=== PATIENT | male | born 1940 | race Caucasian/White ===

== ENCOUNTER → 2018-02-09 | Outpatient (CLI) | payer OTHER, MEDICARE | LOC: BHLMT 14:00 | PROVIDERS: ATTEND Internal Medicine Interventional Cardiology | DX: I48.91 Unspecified atrial fibrillation (principal); R06.02 Shortness of breath | CPT/HCPCS: 93306-PO ==

== ENCOUNTER → 2018-02-17 | Outpatient (CLI) | payer OTHER, MEDICARE | LOC: BHFA 13:00 | PROVIDERS: ATTEND Internal Medicine Cardiovascular Disease | DX: I48.91 Unspecified atrial fibrillation (principal); R06.02 Shortness of breath | CPT/HCPCS: 78452; 93017; A9500; J2785 ==

== ENCOUNTER → 2018-05-04 | Outpatient (CLI) | payer OTHER, MEDICARE | LOC: BHFA 15:00 | PROVIDERS: ATTEND Internal Medicine Cardiovascular Disease | DX: I48.1 Persistent atrial fibrillation (principal); I48.92 Unspecified atrial flutter; I10 Essential (primary) hypertension ==

== ENCOUNTER 2018-05-16 07:30 | Day surgery (SDC) | payer OTHER, MEDICARE ==
[2018-05-16] MEDS ORDERED: NS 500 ML IV ONE (07:32)
[2018-05-16] MEDS ORDERED: BENZOCAINE UNIT DOSE SPRAY HURRICAINE MM ONE (07:32)
[2018-05-16] MEDS ORDERED: MIDAZOLAM 2 MG/2 ML VIAL IVP ONE (07:32)
[2018-05-16] MEDS ORDERED: ATROPINE SULFATE 1 MG/10 ML SYR IVP ONE (07:32)
[2018-05-16] MEDS ORDERED: fentaNYL 100 MCG/2 ML INJ IVP ONE (07:32)
[2018-05-16 08:09] LABS: INR 1.23 (0.83-1.16); PROTIME(PATIENT) 15.7 SEC (12.0-15.0)
--- NOTE | 2018-05-16 08:21 | PDANEPAE ---
ANE History of Present Illness 77 yo in AF ANE Past Medical History - Cardiovascular History Hx Hypertension: Yes Hx Arrhythmias: Yes - Pulmonary History Hx Oxygen in Use at Home: No Hx Sleep Apnea: Yes ANE Review of Systems Review of Systems: ANE Patient History - Allergies Allergies/Adverse Reactions: No Known Allergies Allergy (Unverified 09/08/10 20:02) - Home Medications Home Medications: Acetaminophen [Tylophen] 1,000 mg PO Q4 PRN 06/27/12 [Last Taken 06/23/12 09:00] Aspirin [Aspirin 81mg (OTC)] 81 mg PO DAILY 06/27/12 [Last Taken 06/25/12 09:00] Cholecalciferol Vit D3 [Vitamin D3 2000 units (OTC)] 2,000 units PO DAILY [Last Taken 06/23/12 09:00] Completed By Drive Tester 06/26/12 06/27/12 [Last Taken Unknown] Hydrochlorothiazide [Hydrochlorothiazide 25 MG (RX)] 25 mg PO DAILY 06/27/12 [ Last Taken 06/23/12 09:00] Ibuprofen [Motrin 600 mg (RX)] 600 mg PO DAILY 06/27/12 [Last Taken 06/21/12 09: 00] LEVOTHYROXINE SODIUM [Tirosint 75 mcg] 75 mcg PO DAILY 06/27/12 [Last Taken 08/05 04:00] Lisinopril [Zestril 30 mg] 30 mg PO DAILY 06/27/12 [Last Taken 06/26/12 09:00] Multivitamins [Tab-A-Shay] 1 each PO DAILY 06/27/12 [Last Taken 06/23/12 09:00] Terazosin HCl [Hytrin 5 MG (RX)] 5 mg PO HS 06/27/12 [Last Taken 06/23/12 09:00] - Smoking Hx Smoking Status: Former smoker ANE Labs/Vital Signs - Labs Result Diagrams: 05/16/18 07:35 - Vital Signs Height: 175.26 cm Weight: 95.254 kg ANE Physical Exam - Airway Neck exam: FROM Mallampati Score: Class 2 Mouth exam: normal dental/mouth exam - Pulmonary Pulmonary: no respiratory distress - Cardiovascular Cardiovascular: regular rate and rhythym - ASA Status ASA Status: III ANE Anesthesia Plan Anesthesia Plan: MAC
[2018-05-16] MEDS ORDERED: PROPOFOL 200 MG/20 ML VIAL ONE (08:28)
--- NOTE | 2018-05-16 08:29 | PDGENHP ---
History & Physical Chief Complaint: Atrial flutter History of Present Illness: History of paroxysmal atrial fibrillation and atrial flutter. 12-lead ECG today demonstrates atrial flutter. Relevant Physical Exam: General: A&Ox4, no apparent distress. Respiratory: CTA. Cardiac: Irregularly irregular Cardiorespiratory Assessment: JEISON and cardioversion as planned for today. Will plan to admit for Sotalol loading post-cardioversion.
--- NOTE | 2018-05-16 11:02 | PDTEE1 ---
JEISON Cardioversion Procedure Procedure: electrical cardioversion Indications: other (atrial flutter) Consent: signed and in chart Anticoagulation: eliquis Procedural Details: Pads were placed in anterior-posterior position. JEISON probe was advanced and standard images obtained. There is no evidence of left atrial or left atrial appendage thrombus. Synchronized cardioversion attempt #1: 50J Results: normal sinus rhythm Conclusions: successful JEISON cardioversion (Original plan was to place patient on sotalol. Patient has had atrial flutter x 2, moderate TR, lung disease and had frequent PVC post cardioversion. Therefore plan is NOT to start sotalol but consider atrial flutter ablation if recurrent atrial flutter.) Patient Problems: Problems Problem Status Onset Atrial flutter Acute
--- NOTE | 2018-05-16 18:08 | CPEKG ---
Test Reason : OPEN Blood Pressure : / mmHG Vent. Rate : 081 BPM Atrial Rate : 268 BPM P-R Int : 082 ms QRS Dur : 088 ms QT Int : 390 ms P-R-T Axes : 000 035 -37 degrees QTc Int : 453 ms Atrial flutter Low voltage, extremity leads Confirmed by Sophy Purvis ([id number]) on 05/16/2018 6:07:39 PM Referred By: Confirmed By:Sophy Purvis
--- NOTE | 2018-05-16 18:08 | CPEKG ---
Test Reason : OPEN Blood Pressure : / mmHG Vent. Rate : 076 BPM Atrial Rate : 075 BPM P-R Int : 211 ms QRS Dur : 081 ms QT Int : 371 ms P-R-T Axes : 030 031 -14 degrees QTc Int : 418 ms Sinus rhythm Low voltage, extremity and precordial leads compared with 05/16/2018 at 7:49 a.m. sinus rhythm has replaced atrial flutter Confirmed by Sophy Purvis ([id number]) on 05/16/2018 6:08:18 PM Referred By: Confirmed By:Sophy Purvis
== END 2018-05-16 12:00 | disposition home or self-care (01) ==
LOC: FCATH 07:30 → F2W 08:23 → UNDOADMOB 08:23 → FCATH 12:00
PROVIDERS: ATTEND Internal Medicine Cardiovascular Disease
PROC: 5A2204Z Restoration of Cardiac Rhythm, Single (ICD-10-PCS; principal; 2018-05-16)
DX: I48.92 Unspecified atrial flutter (principal)
CPT/HCPCS: J0461; J2704; J3010